=== PATIENT | female | born 1975 | race Caucasian/White ===

== ENCOUNTER → 2018-11-15 | Outpatient (CLI) | payer OTHER ==
--- NOTE | 2018-11-15 09:47 | BD ---
EXAMINATION TYPE: Axial Bone Density DATE OF EXAM: 11/15/2018 COMPARISON: NONE CLINICAL HISTORY: Postmenopausal. Osteoporosis screening. Height: 63.25 inches Weight: 95 ponds FRAX RISK QUESTIONS: Alcohol (3 or more units per day): no Family History (Parent hip fracture): no Glucocorticoids (More than 3mos): no (Ex: prednisone, prednisolone, methylprednisolone, dexamethasone, and hydrocortisone). History of Fracture in Adulthood: toe Secondary Osteoporosis: 1. Type 1 Diabetes: no 2. Hyperthyroidism: no 3. Menopause before 45: yes 4. Malnutrition: unsure 5. Chronic liver disease: no Rheumatoid Arthritis: no Current Tobacco Use: yes RISK FACTORS HISTORY OF: History of Wrist Fracture: yes When: several times as a child Surgery to Spine/Hip(right/left)/Wrist (right/left): no Family History of Osteoporosis: not to patient's knowledge Active: yes Diet low in dairy products/other sources of calcium: no Postmenopausal woman: yes Take estrogen and/or progesterone medications: no Lost more than 2 inches in height since high school: no Frequent falls: no Poor Health: fair Hyperparathyroidism: no Adrenal Insufficiency: no MEDICATIONS: Thyroid Medications: no Osteoporosis Medications: no Additional Medications: Additional History: EXAM MEASUREMENTS: Bone mineral densitometry was performed using the Lightera System. Bone mineral density as measured about the Lumbar spine is: ----- L1-L4(G/cm2): 0.918 T Score Values are as follows: ----- L2: -2.4 ----- L3: -1.8 ----- L4: -2.3 ----- L1-L4: -2.2 Bone mineral density BASELINE Bone mineral density about the R hip (g/cm2): 0.735 Bone mineral density about the L hip (g/cm2): 0.769 T Score values are as follows: -----R Neck: -2.2 -----L Neck: -1.9 -----R Total: -1.5 -----L Total: -1.5 Bone Mineral Density BASELINE IMPRESSION: Osteopenia (T Score between -2.5 and -1). There is slightly increased risk of fracture and the patient may be considered for treatment. Re-Screen 2-5 years. NOTE: T-SCORE=SD OF THE YOUNG ADULT MEAN.
== END | disposition home or self-care (01) ==
LOC: RADBDWWP 07:05
PROVIDERS: ATTEND Nurse Practitioner Family
DX: M85.88 Other specified disorders of bone density and structure, other site (principal); Z78.0 Asymptomatic menopausal state
CPT/HCPCS: 77080

== ENCOUNTER → 2018-11-24 | Outpatient (CLI) | payer OTHER ==
--- NOTE | 2018-11-24 12:07 | MM ---
Reason for exam: screening (asymptomatic). Last mammogram was performed 2 years and 3 months ago. History: Family history of breast cancer in 2 aunts and breast cancer in 2 grandmothers. Physical Findings: A clinical breast exam by your physician is recommended on an annual basis and results should be correlated with mammographic findings. MG 3D Screening Mammo W/Cad Bilateral CC and MLO view(s) were taken. Prior study comparison: August 31, 2016, bilateral MG screening mammo w CAD. April 29, 2015, bilateral MG screening mammo w CAD. The breast tissue is extremely dense which could obscure a lesion on mammography. Finding: There are two indeterminate grouped/clustered calcifications in the upper outer quadrant, posterior position of the left breast. New finding since August 31, 2016. ASSESSMENT: Incomplete: need additional imaging evaluation, BI-RAD 0 RECOMMENDATION: Special view mammogram of the left breast. [facility] will attempt to contact patient to return for supplemental views.
== END | disposition home or self-care (01) ==
LOC: RADMAMWWP 07:03
PROVIDERS: ATTEND Family Medicine
DX: Z12.31 Encounter for screening mammogram for malignant neoplasm of breast (principal)
CPT/HCPCS: 77063; 77067

== ENCOUNTER → 2019-02-23 | Outpatient (CLI) | payer OTHER ==
--- NOTE | 2019-02-23 10:42 | CT ---
EXAMINATION TYPE: CT soft tissue neck con DATE OF EXAM: 02/23/2019 HISTORY: pain/swelling lt jaw/postop 7 wks COMPARISON: CT DLP: 276.3 mGycm. Automated Exposure Control for Dose Reduction was Utilized. TECHNIQUE: CT scan of the neck is performed without contrast FINDINGS: Lack of intravenous contrast may compromise sensitivity. Dental amalgam causes artifact due to the exam. Airway: No gross abnormality seen. Parotid/submandibular glands: No gross abnormality seen. Carotid/Vascular Structures: Noncontrast exam limits evaluation Osseous Structures: Within the left mandible there is evidence of prior tooth extraction, soft tissu e and lucency present within the posterior left mandible, some low-attenuation is present within the bone, there is endosteal scalloping present, no evident fracture, there is a lucency however along th e lateral margin of the mandible on axial image 45 which may represent a small sinus tract coursing t owards the masseter muscle. Degenerative disc changes are noted in the cervical spine. Other: Large rounded soft tissue focus within the left maxillary sinus may represent mucus retention cyst. IMPRESSION: Postop changes with possible sinus tract as described.
== END | disposition home or self-care (01) ==
LOC: RADCTMAIN 07:04
PROVIDERS: ATTEND Dentist Oral and Maxillofacial Surgery
DX: M60.9 Myositis, unspecified (principal); Z98.890 Other specified postprocedural states
CPT/HCPCS: 70490

== ENCOUNTER → 2019-04-13 | Day surgery (SDC) | payer OTHER ==
[~2019-04-13] MED LIST: ERTAPENEM 1 GM in SODIUM CHLORIDE 0.9% 50 ML IVPB STA; LIDOCAINE 1% INJ 10MG/ML (20 ML MDV) SQ ONE
[2019-04-13 14:30] VITALS: RESP 18
[2019-04-13 15:29] LABS: African American GFR (CKD) >90 (>60 ml/min/1.73 sqM); Anion Gap 6 mmol/L; Blood Urea Nitrogen 14 mg/dL (7-17); Calcium 9.4 mg/dL (8.4-10.2); Carbon Dioxide 28 mmol/L (22-30); Chloride 107 mmol/L (98-107); Glucose 88 mg/dL (74-99); Non-African American GFR(CKD) >90 (>60 ml/min/1.73 sqM); Potassium 4.2 mmol/L (3.5-5.1); Sodium 141 mmol/L (137-145)
--- NOTE | 2019-04-13 16:55 | IR ---
EXAMINATION TYPE: IR cvc insert >=5 years DATE OF EXAM: 04/13/2019 COMPARISON: NONE CLINICAL HISTORY: Infection Needs long-term intravenous access for antibiotics. PROCEDURE: After informed consent, the skin overlying the left basilic vein was localized with ultrasound and no dona to be compressible and patent. An ultrasound image was obtained and submitted on the patient's c gonzales. The overlying skin was prepped and draped and Lidocaine was used for local anesthesia. A skin kayli was made with a scalpel. Access was gained to the vein under ultrasound guidance with a 21 gau ge needle and a 0.018 inch wire was advanced. Access site was dilated with Peel-Away sheath and cath eter tailored to the appropriate length and advanced such that the distal tip is at the cavoatrial ju nction. Spot image was obtained verifying placement. Catheter was fixed to the skin and a sterile d ressing was placed following hemostasis. Catheter was aspirated and flushed with saline. Patient wa s discharged in stable condition without complication. Maximal barrier technique is utilized. Ultras ound image is documented on the chart. Ultrasound used with sterile technique. Fluoro time and fluoroscopic images submitted to document procedure: 23 intraoperative C-arm images, 0.1 minutes fluoroscopy time IMPRESSION: STATUS POST ULTRASOUND AND FLUOROSCOPIC GUIDED PICC LINE PLACEMENT, READY FOR USE. THIS PROCEDURE WAS PERFORMED BY THE UNDERSIGNED.
[2019-04-13 17:13] VITALS: BP 113/62
== END | disposition home or self-care (01) ==
LOC: CATHCVL 13:03
PROVIDERS: ATTEND Radiology Diagnostic Radiology
DX: Z45.2 Encounter for adjustment and management of vascular access device (principal); M27.2 Inflammatory conditions of jaws; F17.200 Nicotine dependence, unspecified, uncomplicated
CPT/HCPCS: 36573; 80048; C1751; C1769; J2001; J1335

== ENCOUNTER → 2019-10-17 | Outpatient (CLI) | payer OTHER ==
--- NOTE | 2019-10-17 13:10 | CT ---
EXAMINATION TYPE: CT facial bones wo/w con DATE OF EXAM: 10/17/2019 COMPARISON: HISTORY: Chronic Lt Mandibular pain CT DLP: 961.6 mGycm Automated exposure control for dose reduction was used. CONTRAST: CT scan of the facial bones is performed without and with IV Contrast, patient injected with 100 mL o f Isovue 300. TECHNIQUE: CT scan of the sinuses is performed without contrast, axial images are obtained, coronal r eformatted images are also reviewed. FINDINGS: At the lateral aspect of the posterior left mandible there is abnormal lucency at the outer cortex, axial image 23, there may be underlying sequestrum measuring 3 to 4 mm within the medullary aspect of the bone. No definite periostitis. The paranasal sinuses including the frontal, ethmoid, sphenoid, and maxillary sinuses bilaterally ar e remarkable for soft tissue focus in the antrum of the left x-ray sinus measuring 2.6 cm which is so mewhat lobular in appearance and is likely to represent mucous retention cyst. No abnormal enhancemen t following contrast administration. Dental amalgam causes streak artifact over portions of the exam. . The ostiomeatal complex is patent bilaterally on the coronal images. Visualized portion of mastoid air cells show no abnormal opacification. The globes are intact bilate rally. IMPRESSION: There is likely osteomyelitis involving the left mandible with sinus tract, sequestrum as described. Additional findings above.
== END | disposition home or self-care (01) ==
LOC: RADCTMAIN 08:03
PROVIDERS: ATTEND Family Medicine
DX: G89.29 Other chronic pain (principal); R68.84 Jaw pain; Z98.890 Other specified postprocedural states
CPT/HCPCS: 82565; 84520; 70488; 36415; Q9967

== ENCOUNTER → 2022-04-01 | Outpatient (CLI) | payer OTHER ==
--- NOTE | 2022-04-01 09:20 | US ---
EXAMINATION TYPE: US abdomen complete DATE OF EXAM: 04/01/2022 COMPARISON: NONE CLINICAL HISTORY: 46-year-old female R10.9 ABD PAIN. Vomiting. TECHNIQUE: Multiple sonographic images of the abdomen are obtained. FINDINGS: EXAM MEASUREMENTS: Liver Length: 15 cm Gallbladder Wall: Obscured by bowel gas. CBD: .4 cm Spleen: 7.5 cm Right Kidney: 9.9 x 3.8 x 4.0 cm Left Kidney: 10.4 x 4.6 x 4.1 cm Pancreas: wnl Liver: wnl Gallbladder: Obscured by overlying bowel gas Evidence for sonographic Gamboa's sign: no CBD: wnl Spleen: wnl Right Kidney: wnl Left Kidney: wnl Upper IVC: wnl Abd Aorta: wnl IMPRESSION: 1. The gallbladder region is obscured by bowel gas and not adequately assessed. 2. No biliary ductal dilatation. 3. No other specific sonographic abnormality of the abdomen is identified.
== END | disposition home or self-care (01) ==
LOC: RADUSWWP 06:50
PROVIDERS: ATTEND Family Medicine
DX: R10.9 Unspecified abdominal pain (principal)
CPT/HCPCS: 76700

== ENCOUNTER 2022-06-11 12:22 | Emergency (ER) | payer OTHER ==
[2022-06-11 12:57] VITALS: RESP 18; TEMP 98.2
[2022-06-11] MEDS ORDERED: MORPHINE SULFATE 4 MG/ML SYRINGE IM STA (14:06)
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
[2022-06-11] MEDS ORDERED: methylPREDNISolone SOD SUCCI 125 MG/2 ML VIAL IM ONE (14:56)
--- NOTE | 2022-06-11 14:57 | CT ---
EXAMINATION TYPE: CT hip LT wo con CT DLP: 279 mGycm, Automated exposure control for dose reduction was used. DATE OF EXAM: 06/11/2022 2:47 PM COMPARISON: CT abdomen and pelvis 04/29/2015. CLINICAL INDICATION:Female, 46 years old with history of pain; TECHNIQUE: Axial images were obtained of the left hip without the use of IV contrast. Additional cor onal and sagittal reformatted images and soft tissue and bone window were obtained for review. 3-D re construction was created on a separate workstation. FINDINGS: There is no evidence of fracture, subluxation, or dislocation. No significant soft tissue swelling or joint effusion is identified. No focal muscular atrophy or edema is identified. No radiop aque foreign body identified. No sclerotic or lytic aggressive osseous lesions identified. IMPRESSION: No acute osseous abnormality.
--- NOTE | 2022-06-11 14:57 | CT ---
EXAMINATION TYPE: CT lumbar spine wo con DATE OF EXAM: 06/11/2022 2:46 PM COMPARISON: None HISTORY: low back and left hip pain, no injury. Technique: CT DLP: 423.9 mGycm Automated exposure control for dose reduction was used. Unenhanced CT of the lumbar spine was performed. Bone and soft tissue window settings are submitted as well as coronal and sagittal reconstructions. Findings: There is mild dextroscoliosis of the lumbar spine. On the sagittal views lumbar spine, the vertebral segments are normal in height and alignment and the re is no fracture or subluxation. At the L1-2 and L3-4 and L4-5 levels there is mild spondylosis and disc space narrowing indicating mi ld degenerative disc disease. There is a moderate far left lateral disc herniation of the L3-4 disc on the left. No other disc prot rusions or herniations. There is no spinal stenosis. SI joints and facet joints are intact. The paraspinal soft tissues are unremarkable. IMPRESSION: 1. Mild multilevel degenerative disease. 2. Moderate far left lateral disc herniation at the L3-4 level. 3. No spinal stenosis. 4. Mild dextroscoliosis 5. No lumbar spine fracture or malalignment
--- NOTE | 2022-06-11 14:58 | CT ---
EXAMINATION TYPE: CT sacrum wo con DATE OF EXAM: 06/11/2022 COMPARISON: None HISTORY: low back and left hip pain, no injury. CT DLP: 414.4 mGycm Automated exposure control for dose reduction was used. FINDINGS: The sacrum is intact without fracture. There is a small bone island the S1 segment anteriorly. The ne uroforamina appear patent the SI joints are unremarkable IMPRESSION: NO SIGNIFICANT ABNORMALITY SEEN.
[2022-06-11 16:02] VITALS: BP 110/62; PULSE 76
== END 2022-06-11 16:00 | disposition home or self-care (01) ==
LOC: EC 12:22
DX: M51.16 Intervertebral disc disorders with radiculopathy, lumbar region (principal); Z88.5 Allergy status to narcotic agent
CPT/HCPCS: 72131; 73700; 72192; 99283; 96372; J2270; J2930

== ENCOUNTER → 2025-02-15 | Outpatient (CLI) | payer OTHER ==
--- NOTE | 2025-02-15 10:16 | MM ---
Reason for Exam: Screening (asymptomatic). Last mammogram was performed 6 year(s) and 3 month(s) ago. Patient History: Menarche at age 12. First Full-Term at age 17. Hysterectomy at age 24. Patient has history of breast feeding. Patient used Hormonal Contraceptives for 1 year. Maternal grandmother had breast cancer. Maternal grandmother had breast cancer. Maternal aunt had breast cancer. Maternal aunt had breast cancer. Risk Values: Cara 5 year model risk: 0.7%. NCI Lifetime model risk: 5.9%. Prior Study Comparison: 04/29/2015 Bilateral Screening Mammogram, [facility]. 08/31/2016 Bilateral Screening Mammogram, [facility]. 11/24/2018 Bilateral Screening Mammogram, [facility]. Tissue Density: The breasts are extremely dense, which lowers the sensitivity of mammography. Findings: Analyzed By CAD. Loosely grouped calcifications seen in the inner margin of the right breast on the cc view. Additional benign-appearing calcification. No dominant mass or architectural torsion. Overall Assessment: Incomplete: need additional imaging evaluation, BI-RAD 0 Management: Special View Mammogram of the right breast. . Patient should continue monthly self-breast exams. A clinical breast exam by your physician is recommended on an annual basis. This exam should not preclude additional follow-up of suspicious palpable abnormalities. Note on Cara scores and lifetime risk: 1. A Cara score greater than 3% is considered moderate risk. If this is the case, consider specialist referral to assess eligibility for a risk reducing agent. 2. If overall lifetime risk for the development of breast cancer is 20% or higher, the patient may qualify for future screening with alternating mammogram and breast MRI. [facility], , 02/15/2025 10:13 AM. Electronically signed and approved by: Osvaldo Hsieh M.D. Radiologis
== END | disposition home or self-care (01) ==
LOC: RADMAMWWP 09:54
PROVIDERS: ATTEND Family Medicine
DX: Z12.31 Encounter for screening mammogram for malignant neoplasm of breast (principal); R92.343 Mammographic extreme density, bilateral breasts; R92.1 Mammographic calcification found on diagnostic imaging of breast; Z92.0 Personal history of contraception; Z80.3 Family history of malignant neoplasm of breast
CPT/HCPCS: 77067

== ENCOUNTER → 2025-02-21 | Outpatient (CLI) | payer OTHER ==
--- NOTE | 2025-02-21 13:36 | MM ---
Reason for Exam: Additional evaluation requested from abnormal screening. Last screening mammogram was performed less than 1 month ago. Patient History: Menarche at age 12. First Full-Term at age 17. Hysterectomy at age 24. Postmenopausal. Patient has history of breast feeding. Patient used Hormonal Contraceptives for 1 year. Maternal grandmother had breast cancer. Maternal grandmother had breast cancer. Maternal aunt had breast cancer. Maternal aunt had breast cancer. Risk Values: Cara 5 year model risk: 0.7%. NCI Lifetime model risk: 5.9%. Prior Study Comparison: 10/31/2013 Bilateral Screening Mammogram, [facility]. 04/29/2015 Bilateral Screening Mammogram, [facility]. 08/31/2016 Bilateral Screening Mammogram, [facility]. 11/24/2018 Bilateral Screening Mammogram, [facility]. 02/15/2025 Bilateral MG screening mammo w CAD, [facility]. Tissue Density: Right: The breasts are heterogeneously dense, which may obscure small masses. Findings: Analyzed By CAD. The central, inner group calcifications have a punctate appearance on magnification views. We are able to locate a prior exam where these calcifications calcifications were present back in 2019. No significant change. Overall Assessment: Benign, BI-RAD 2 Management: Screening Mammogram of both breasts in 1 year. Results were given to the patient verbally at the time of exam. Patient should continue monthly self-breast exams. A clinical breast exam by your physician is recommended on an annual basis. This exam should not preclude additional follow-up of suspicious palpable abnormalities. Note on Cara scores and lifetime risk: 1. A Cara score greater than 3% is considered moderate risk. If this is the case, consider specialist referral to assess eligibility for a risk reducing agent. 2. If overall lifetime risk for the development of breast cancer is 20% or higher, the patient may qualify for future screening with alternating mammogram and breast MRI. [facility], , 02/21/2025 1:33 PM. Electronically signed and approved by: Carmelita Navarro M.D. Radiologist
== END | disposition home or self-care (01) ==
LOC: RADMAMWWP 12:45
PROVIDERS: ATTEND Family Medicine
DX: R92.8 Other abnormal and inconclusive findings on diagnostic imaging of breast (principal); R92.331 Mammographic heterogeneous density, right breast; R92.1 Mammographic calcification found on diagnostic imaging of breast; Z78.0 Asymptomatic menopausal state; Z92.0 Personal history of contraception; Z80.3 Family history of malignant neoplasm of breast
CPT/HCPCS: 77065; G0279; 77061

== ENCOUNTER → 2025-02-26 | Outpatient (CLI) | payer OTHER ==
--- NOTE | 2025-02-26 14:22 | CTL ---
EXAMINATION TYPE: CT Low Dose Lung DATE OF EXAM ORDERED: 02/26/2025 COMPARISON: None CLINICAL INDICATION: Female, 49 years old with history of Z12.2 LUNG CA SCR F17.210 CURRENT SMOKER; P HH, Current smoker 1 ppd x 30 years, Lung cancer screening, History of Smoking/tobacco use. TECHNIQUE: Low dose computed tomography scan was performed through the chest at 1 mm thick sections a nd reconstructed images in multiple planes at 1 mm and [address] DLP: [address] CTDI: .9 mGy Automated exposure control for dose reduction was used. CT DIAGNOSTIC QUALITY: Satisfactory FINDINGS: Nodules: Few left upper lobe calcified granulomas. Left lower lobe 4 mm solid pulmonary nodule (series 6, image 29). Left lower lobe pleural-based 2.8 mm pulmonary nodule (series 6, image 43). Left lower lobe pleural-based 3.3 mm pulmonary nodule (series 6, image 44). Left lower lobe subpleural 3.5 mm pulmonary nodule (series 6, image 49). Right lower lobe 2.8 mm pulm onary nodule (series 6, image 44). LUNGS: COPD: Severity: Mild Fibrosis: Severity: None Lymph nodes: No enlarged lymph nodes identified. AP window calcified lymph node. Additional left padmini r calcified lymph node. Other findings: None RIGHT PLEURAL SPACE: Effusion: None Calcification: None Thickening: None Pneumothorax: None LEFT PLEURAL SPACE: Effusion: None Calcification: None Thickening: None Pneumothorax: None HEART: Heart Size: Normal Coronary Calcification: None Pericardial Effusion: None OTHER FINDINGS: Upper abdomen: Scattered calcified granulomas within the spleen. Bony thorax: None Supraclavicular region: None Other: None IMPRESSION: 1. Few scattered pulmonary nodules measuring up to 4 mm. 2. Mild emphysematous changes. 3. Sequelae of prior granulomatous disease. CT LUNG RAD AND CT CHEST RECOMMENDATION: Lung-Rad 2 Benign Appearance or Behavior: Continue annual sc reening with LDCT in 12 months. S Modifier (other clinically significant findings): None [facility], , 02/26/2025 2:19 PM
== END | disposition home or self-care (01) ==
LOC: RADCTMAIN 07:44
PROVIDERS: ATTEND Family Medicine
DX: Z12.2 Encounter for screening for malignant neoplasm of respiratory organs (principal); F17.210 Nicotine dependence, cigarettes, uncomplicated; R91.8 Other nonspecific abnormal finding of lung field; J43.9 Emphysema, unspecified
CPT/HCPCS: 71271